=== PATIENT | male | born 1990 | race Caucasian/White ===

== ENCOUNTER 2024-08-30 10:52 | Outpatient (OUT) | payer OTHER, SELFPAY ==
--- NOTE | 2024-08-30 | XR_ITS ---
The [address] [address] Patient Name: TOBY DEVLIN MRN: [id number] date: 1990 Sex: M Assigned Patient Location: Current Patient Location: Accession/Order Number: [id number] Exam Date: 08/30/2024 15:53 Report Date: 08/30/2024 15:54 At the request of: TAM MENDOZA MD Procedure: XR elbow RT min 3V RIGHT ELBOW - 3 views CLINICAL HISTORY: M25.521 right elbow pain COMPARISON: None FINDINGS: Posterior soft tissue swelling with olecranon spurring. No acute bony process. XR/XR elbow RT min 3V IMPRESSION: POSTERIOR SOFT TISSUE SWELLING OLECRANON SPURRING. NO ACUTE BONY PROCESS. Impression dictated by: Toby Lr Jr., JahOAileen 08/30/2024 3:54 PM Dictation Location: [place] [address] Electronically authenticated by: [id number] Y Date: 08/30/2024 15:54
== END 2024-08-30 10:53 | disposition home or self-care (01) ==
LOC: EC 10:55
PROVIDERS: Visit Provider Orthopaedic Surgery
DX: M25.521 Pain in right elbow (principal); M25.421 Effusion, right elbow
CPT/HCPCS: 73080